=== PATIENT | male | born 1955 | race African-American/Black ===

== ENCOUNTER 2017-07-30 05:56 | Emergency (ER) | payer OTHER ==
[~2017-07-30 05:56] MED LIST: ACET325 PO; ALBU90I INH; ALBU90OI INH; ALUMAG30SU PO; ASPI81CH PO; ATOR40TA PO; CARV3.125 PO; CEPH500 PO; FISH1000; FISH1000 PO; LISHYD1012 PO; LISHYD2025 PO; Milk Of Ma400 MG/5 M PO; NICO21TP TOP; OXYACE5T PO; PRAZ2 PO; RXCLIN PO; RXHYD5325 PO; SULF10OPSA OD; TRAZ50 PO
[2018-02-04] MEDS ORDERED: PRED20 PO (11:59)
== END 2017-07-30 08:13 | disposition left against medical advice (07) ==
LOC: ER 05:56
DX: Z53.21 Procedure and treatment not carried out due to patient leaving prior to being seen by health care provider (principal)

== ENCOUNTER → 2017-12-13 | Outpatient (CLI) | payer OTHER ==
[~2017-12-13] MED LIST changes: +ASPI81CH; -ASPI81CH PO
[2017-12-13 17:07] LABS: BASOPHILS ABSOLUTE AUTO 0.05 K/mm3 (0.00-0.23); BASOPHILS PERCENT AUTO 1 % (0-2); EOSINOPHILS ABSOLUTE AUTO 0.07 K/mm3 (0.00-0.68); EOSINOPHILS PERCENT AUTO 2 % (0-6); Hematocrit 46.9 % (37.0-53.0); Hemoglobin 15.4 g/dL (13.5-17.5); IMMATURE GRAN ABSOLUTE AUTO 0.01 K/mm3 (0.00-0.10); IMMATURE GRAN PERCENT AUTO 0 % (0-1); LYMPHOCYTES ABSOLUTE AUTO 1.53 K/mm3 (0.84-5.20); LYMPHOCYTES PERCENT AUTO 38 % (21-46); MONOCYTES ABSOLUTE AUTO 0.36 K/mm3 (0.16-1.47); MONOCYTES PERCENT AUTO 9 % (4-13); Mean Corpuscular HGB 28.3 pg (26.0-34.0); Mean Corpuscular HGB Conc 32.8 g/dL (31.5-36.5); Mean Corpuscular Volume 86 fL (80-100); Mean Platelet Volume 9.8 fL (9.1-12.4); NEUTROPHILS ABSOLUTE AUTO 2.02 K/mm3 (1.96-9.15); NEUTROPHILS PERCENT AUTO 50 % (41-73); Platelet Count 208 K/mm3 (150-400); RDW Coefficient Variation 13.6 % (11.7-14.2); RDW Standard Deviation 42.9 fL (35.1-46.3); Red Blood Cell Count 5.44 M/mm3 (4.30-5.90); White Blood Cell Count 4.04 K/mm3 (4.00-11.30)
[2017-12-13 17:24] LABS: Alanine Aminotransfer (ALT/SGP 21 U/L (12-78); Albumin, Blood 4.2 g/dL (3.4-5.0); Albumin/Globulin Ratio 1.1 (0.8-1.8); Alk Phos 69 U/L (40-126); Anion Gap 8 mmol/L (6-16); Aspartate Aminotrans (AST/SGOT 17 U/L (12-37); Bilirubin, Total 0.3 mg/dL (0.1-1.0); Blood Urea Nitrogen 18 mg/dL (8-24); Bun/Creatinine Ratio 14.8 (12.0-20.0); CO2, Blood 25 mmol/L (21-32); Calcium, Blood 9.6 mg/dL (8.5-10.1); Chloride, Blood 106 mmol/L (98-108); Creatinine, Blood 1.22 mg/dL (0.60-1.20); Globulin, Blood 3.9 g/dL (2.2-4.0); Glomerular Filtration Rate >60 (60-); Glucose, Blood 90 mg/dL (70-99); Potassium, Blood 3.8 mmol/L (3.5-5.5); Sodium, Blood 139 mmol/L (136-145); Total Protein, Blood 8.1 g/dL (6.4-8.2)
== END | disposition home or self-care (01) ==
LOC: LAB EV 17:01 → LAB SHORT 17:01
PROVIDERS: Physician Assistant Medical
DX: R10.84 Generalized abdominal pain (principal)
CPT/HCPCS: 80053; 85025

== ENCOUNTER 2018-01-23 18:28 | Observation (INO) | payer OTHER ==
[~2018-01-23] VITALS: Ht 193 cm; Wt 87.0 kg
[~2018-01-23 18:28] MED LIST changes: -ASPI81CH; +ASPI81CH PO
[2018-01-23 19:09] LABS: BASOPHILS ABSOLUTE AUTO 0.03 K/mm3 (0.00-0.23); BASOPHILS PERCENT AUTO 0 % (0-2); EOSINOPHILS ABSOLUTE AUTO 0.01 K/mm3 (0.00-0.68); EOSINOPHILS PERCENT AUTO 0 % (0-6); Hematocrit 46.4 % (37.0-53.0); Hemoglobin 14.9 g/dL (13.5-17.5); IMMATURE GRAN ABSOLUTE AUTO 0.03 K/mm3 (0.00-0.10); IMMATURE GRAN PERCENT AUTO 0 % (0-1); LYMPHOCYTES ABSOLUTE AUTO 1.16 K/mm3 (0.84-5.20); LYMPHOCYTES PERCENT AUTO 16 % (21-46); MONOCYTES ABSOLUTE AUTO 0.67 K/mm3 (0.16-1.47); MONOCYTES PERCENT AUTO 10 % (4-13); Mean Corpuscular HGB 27.4 pg (26.0-34.0); Mean Corpuscular HGB Conc 32.1 g/dL (31.5-36.5); Mean Corpuscular Volume 85 fL (80-100); Mean Platelet Volume 9.3 fL (9.1-12.4); NEUTROPHILS ABSOLUTE AUTO 5.16 K/mm3 (1.96-9.15); NEUTROPHILS PERCENT AUTO 73 % (41-73); Platelet Count 277 K/mm3 (150-400); RDW Coefficient Variation 13.5 % (11.7-14.2); Red Blood Cell Count 5.44 M/mm3 (4.30-5.90); White Blood Cell Count 7.06 K/mm3 (4.00-11.30)
[2018-01-23 19:54] LABS: Albumin, Blood 4.7 g/dL (3.4-5.0); Albumin/Globulin Ratio 1.1 (0.8-1.8); Bilirubin, Total 0.5 mg/dL (0.1-1.0); Calcium, Blood 9.6 mg/dL (8.5-10.1); Globulin, Blood 4.1 g/dL (2.2-4.0); Potassium, Blood 4.2 mmol/L (3.5-5.5); Total Protein, Blood 8.8 g/dL (6.4-8.2); Troponin I 0.439 ng/mL (0.000-0.040)
[2018-01-23] MEDS ORDERED: AMLO5 PO (20:29)
[2018-01-23] MEDS ORDERED: CLOP75 PO (20:30)
[2018-01-23] MEDS ORDERED: HYDRA50 PO (20:31)
[2018-01-23] MEDS ORDERED: LISI20 PO (20:31)
[2018-01-23] MEDS ORDERED: Dyazide 37.5-21 EACH PO (20:33)
[2018-01-23] MEDS ORDERED: Nitrostat0.4 MG SL (20:33)
[2018-01-24 03:18] LABS: Hemoglobin 13.5 g/dL (13.5-17.5); Mean Corpuscular HGB 28.2 pg (26.0-34.0); Mean Corpuscular HGB Conc 32.9 g/dL (31.5-36.5); Mean Corpuscular Volume 86 fL (80-100); Mean Platelet Volume 9.1 fL (9.1-12.4); Platelet Count 226 K/mm3 (150-400); RDW Coefficient Variation 13.4 % (11.7-14.2); RDW Standard Deviation 41.9 fL (35.1-46.3); Red Blood Cell Count 4.79 M/mm3 (4.30-5.90); White Blood Cell Count 4.93 K/mm3 (4.00-11.30)
[2018-01-24 03:19] LABS: Source, Urine Clean Catch
[2018-01-24 03:27] LABS: Bilirubin, Urine Neg (Neg); Blood, Urine Neg (Neg); Glucose Qualitative, Urine Neg (Neg); Ketones, Urine Neg (Neg); Leukocyte Esterase, Urine Neg (Neg); Nitrite, Urine Neg (Neg); Protein, Urine Neg (Neg); Urobilinogen, Urine NORM (Normal)
[2018-01-24 03:33] LABS: Appearance, Urine Clear (Clear); Color, Urine Yellow (P-Yellow)
[2018-01-24 03:37] LABS: U Amphetamine Screen DETECTED; U Barbituate Screen Not Detected; U Benzodiazapine Screen Not Detected; U Cocaine Screen Not Detected; U Methamphetamine Screen DETECTED
[2018-01-24 03:38] LABS: U Buprenorphine Screen Not Detected; U Cannabinoids Screen Not Detected; U Methadone Screen Not Detected; U Opiates Screen Not Detected; U Oxycodone Screen Not Detected; U Phencyclidine Screen Not Detected; U Propoxyphene Screen Not Detected
[2018-01-24 03:49] LABS: Albumin, Blood 3.8 g/dL (3.4-5.0); Albumin/Globulin Ratio 1.1 (0.8-1.8); Bilirubin, Total 0.4 mg/dL (0.1-1.0); Bun/Creatinine Ratio 21.6 (12.0-20.0); Calcium, Blood 8.7 mg/dL (8.5-10.1); Creatinine, Blood 1.39 mg/dL (0.60-1.20); Globulin, Blood 3.6 g/dL (2.2-4.0); Potassium, Blood 3.8 mmol/L (3.5-5.5); Total Protein, Blood 7.4 g/dL (6.4-8.2)
[2018-01-24 03:50] LABS: Troponin I 0.533 ng/mL (0.000-0.040)
[2018-01-24 04:04] LABS: Creatine Kinase MB 6.2 ng/mL (0.0-3.6); Creatine Kinase MB Index 1.2 (0.0-4.0)
[2018-01-24 12:55] LABS: Troponin I 0.633 ng/mL (0.000-0.040)
[2018-01-24 14:42] LABS: Creatine Kinase MB 5.2 ng/mL (0.0-3.6); Creatine Kinase MB Index 1.1 (0.0-4.0)
== END 2018-01-24 20:05 | disposition left against medical advice (07) ==
LOC: ER 18:28 → MEDS 18:29
PROVIDERS: Emergency Medicine; Internal Medicine
DX: N17.9 Acute kidney failure, unspecified (principal); R07.89 Other chest pain; R79.89 Other specified abnormal findings of blood chemistry; I25.10 Atherosclerotic heart disease of native coronary artery without angina pectoris; R11.2 Nausea with vomiting, unspecified; I12.9 Hypertensive chronic kidney disease with stage 1 through stage 4 chronic kidney disease, or unspecified chronic kidney disease; N18.9 Chronic kidney disease, unspecified; I25.2 Old myocardial infarction; N40.0 Benign prostatic hyperplasia without lower urinary tract symptoms; F17.210 Nicotine dependence, cigarettes, uncomplicated; Z95.5 Presence of coronary angioplasty implant and graft; Z86.73 Personal history of transient ischemic attack (TIA), and cerebral infarction without residual deficits; Z85.46 Personal history of malignant neoplasm of prostate; Z79.82 Long term (current) use of aspirin; Z79.01 Long term (current) use of anticoagulants; Z79.899 Other long term (current) drug therapy
CPT/HCPCS: 36415; 71046; 76705; 76770; 80053; 81003; 82550; 82553; 84484; 85025; 85027; 93005; 93010; 96361; 96372; 96374; 96375; 96376; 99285-25; C9113; G0378; J1650; J2405; J7030

== ENCOUNTER 2018-06-27 19:30 | Emergency (ER) | payer OTHER ==
[~2018-06-27] VITALS: Ht 193 cm; Wt 83.9 kg
[~2018-06-27 19:30] MED LIST changes: +AMLO5 PO; +CLOP75 PO; +Dyazide 37.5-21 EACH PO; +HYDRA50 PO; +LISI20 PO; +Nitrostat0.4 MG SL; +PRED20 PO
[2018-06-27] MEDS ORDERED: VOLTAREN100 GM TOP (23:41)
[2018-06-28] MEDS ORDERED: HYDR1TAB94 PO (15:48)
== END 2018-06-27 23:50 | disposition home or self-care (01) ==
LOC: ER 19:30
DX: T14.8XXA Other injury of unspecified body region, initial encounter (principal); I10 Essential (primary) hypertension; F17.210 Nicotine dependence, cigarettes, uncomplicated; Z79.899 Other long term (current) drug therapy; Z79.82 Long term (current) use of aspirin; Z79.52 Long term (current) use of systemic steroids; V49.9XXA Car occupant (driver) (passenger) injured in unspecified traffic accident, initial encounter
CPT/HCPCS: 71046; 72040; 96372; 99284-25; J1885

== ENCOUNTER 2018-09-21 10:51 | Day surgery (SDC) | payer OTHER ==
[~2018-09-21] VITALS: Ht 193 cm; Wt 94.2 kg
[~2018-09-21 10:51] MED LIST changes: +HYDR1TAB94 PO; +VOLTAREN100 GM TOP
--- NOTE | 2018-09-21 11:09 | NUR ---
Ambulatory in Day SurgeryPatient states colon prep results clear. History, Chart, Medications and Allergies reviewed before start of procedure.Lungs clear T/O to Auscultation. Patient confirms NPO status and agrees with scheduled surgery. Pre-Op teaching done. Pt verbalizes understanding.
--- NOTE | 2018-09-21 12:20 | NUR ---
09/21/18 1220 Jaydon Infante Bite Block Placed3-LEAD EKG REVIEWED WITH PHYSICIAN PRIOR TO START OF PROCEDURE.Patient to ENDO 1History, Chart, Medications and Allergies reviewed before start of procedure.MONITOR INTACT WITH CONTINUOUS PULSE OXIMETRY AND INTERMITTENT BP.O2 VIA N/C INTACT THROUGHOUT SEDATION/PROCEDURE.See Anesthesia record
--- NOTE | 2018-09-21 13:31 | NUR ---
PT TO STEP. C/O PAIN TO NECK 10/07. STATES HE HAS CHRONIC NECK PAIN. PT DROWSY, RESPONDS WHEN SPOKEN TO. ADVISED TO PASS AIR IF HAVING ABD CRAMPS.
--- NOTE | 2018-09-21 13:51 | NUR ---
WRITTEN AND VERBAL D/C INSTUCIONS GIVEN TO PT AND WITH STATED UNDERSTANDING.
== END 2018-09-21 22:42 | disposition home or self-care (01) ==
LOC: ORSCMMR 10:51
PROVIDERS: Internal Medicine Gastroenterology
PROC: 0DBN8ZX Excision of Sigmoid Colon, Via Natural or Artificial Opening Endoscopic, Diagnostic (ICD-10-PCS; principal; 2018-09-21 12:00)
PROC: 0DBL8ZX Excision of Transverse Colon, Via Natural or Artificial Opening Endoscopic, Diagnostic (ICD-10-PCS; principal; 2018-09-21 12:00)
PROC: 0DJ08ZZ Inspection of Upper Intestinal Tract, Via Natural or Artificial Opening Endoscopic (ICD-10-PCS; principal; 2018-09-21 12:00)
DX: D50.9 Iron deficiency anemia, unspecified (principal); D12.3 Benign neoplasm of transverse colon; D12.5 Benign neoplasm of sigmoid colon; K92.1 Melena; K57.30 Diverticulosis of large intestine without perforation or abscess without bleeding; K64.8 Other hemorrhoids; K25.9 Gastric ulcer, unspecified as acute or chronic, without hemorrhage or perforation; I10 Essential (primary) hypertension; I25.2 Old myocardial infarction; F41.8 Other specified anxiety disorders; F17.210 Nicotine dependence, cigarettes, uncomplicated; Z79.899 Other long term (current) drug therapy; Z79.82 Long term (current) use of aspirin; Z79.01 Long term (current) use of anticoagulants
CPT/HCPCS: 88305; J2405; J2704; J3010; J7120

== ENCOUNTER 2019-12-05 03:18 | Inpatient (IN) | payer OTHER ==
[~2019-12-05] VITALS: Ht 193 cm; Wt 84.8 kg
[~2019-12-05 03:18] MED LIST changes: +ASPI325 PO
[2019-12-05 03:58] LABS: Hematocrit 41.6 % (37.0-53.0); Hemoglobin 12.9 g/dL (13.5-17.5); Mean Corpuscular HGB 28.2 pg (26.0-34.0); Mean Corpuscular Volume 91 fL (80-100); Mean Platelet Volume 9.9 fL (9.1-12.4); Platelet Count 203 K/mm3 (150-400); RDW Coefficient Variation 14.6 % (11.7-14.2); RDW Standard Deviation 48.8 fL (35.1-46.3); Red Blood Cell Count 4.58 M/mm3 (4.30-5.90); White Blood Cell Count 3.96 K/mm3 (4.00-11.30)
[2019-12-05 04:00] LABS: Calcium, Ionized (POC) 1.17 mmol/L (1.10-1.46); Chloride (POC) 106 mmol/L (98-108); Creatinine (POC) 1.1 mg/dL (0.8-1.3); Glucose (ISTAT POC) 138 mg/dL (70-99); Hemoglobin (POC) 13.9 g/dL (13.5-17.5); Sodium (POC) 140 mmol/L (135-148); Total CO2 (POC) 22 mmol/L (21-32)
[2019-12-05 04:13] LABS: Prothrombin Time Results 10.7 Sec (9.7-11.5)
[2019-12-05 04:18] LABS: Alanine Aminotransfer (ALT/SGP 26 U/L (12-78); Albumin, Blood 3.9 g/dL (3.4-5.0); Albumin/Globulin Ratio 1.2 (0.8-1.8); Alk Phos 64 U/L (50-136); Anion Gap 4 mmol/L (6-16); Aspartate Aminotrans (AST/SGOT 24 U/L (12-37); Bilirubin, Total 0.2 mg/dL (0.1-1.0); Blood Urea Nitrogen 25 mg/dL (8-24); Bun/Creatinine Ratio 20.8 (12.0-20.0); CHOL/HDL RATIO 1.4; CO2, Blood 27 mmol/L (21-32); Calcium, Blood 8.5 mg/dL (8.5-10.1); Chloride, Blood 110 mmol/L (98-108); Cholesterol 91 mg/dL (50-200); Globulin, Blood 3.2 g/dL (2.2-4.0); Glomerular Filtration Rate >60 (60-); Glucose, Blood 121 mg/dL (70-99); HDL Cholesterol 63 mg/dL (>39); LDL/HDL RATIO 0.3; Low Density Lipoprotein Chol 16 mg/dL (0-110); Magnesium, Blood 2.2 mg/dL (1.6-2.4); Potassium, Blood 3.9 mmol/L (3.5-5.5); Sodium, Blood 141 mmol/L (136-145); Total Protein, Blood 7.1 g/dL (6.4-8.2); Triglycerides 58 mg/dL (30-160); Troponin I <0.015 ng/mL (0.000-0.040); Very Low Density Lipoprot Chol 11 mg/dL (6-32)
[2019-12-05] MEDS ORDERED: METO25ER PO (05:53)
--- NOTE | 2019-12-05 06:43 | NUR ---
ADMIT/ASSESSMENT PT ARRIVED FROM GRAVITY METER OPERATOR AT 0540 VIA BED. PT AWAKE, A&O. DENIES PAIN OR DISCOMFORT. FOLLOWS INSTRUCTIONS. LUNGS CLEAR ON ROOMAIR. RESP EVEN AND NONLABORED. DENIES SOB OR COUGH. HEART RATE REGULAR, SINUS ISAAC. DENIES CHEST PAIN OR PRESSURE. NO EDEMA. BT+ ABD SOFT AND NONTENDER. DENIES N/V. STATES,"I HAVE A LITTLE INDIGESTION, BUT BETTER THAN BEFORE". IV 18G TO RIGHT AND LEFT FOREARM BOTH SALINE LOCKED, SITES CLEAR. VOIDING CLEAR YELLOW URINE VIA URINAL. TR BAND TO RIGHT WRIST SITE STABLE. NO BLEEDING OR HEMATOMA NOTED. REPORT TO ON COMING NURSE
[2019-12-05 07:33] LABS: U Amphetamine Screen Not Detected; U Barbituate Screen Not Detected; U Benzodiazapine Screen Not Detected; U Buprenorphine Screen Not Detected; U Cannabinoids Screen Not Detected; U Cocaine Screen Not Detected; U Methadone Screen Not Detected; U Methamphetamine Screen Not Detected; U Opiates Screen Not Detected; U Oxycodone Screen Not Detected; U Phencyclidine Screen Not Detected; U Propoxyphene Screen Not Detected
--- NOTE | 2019-12-05 10:59 | NUR ---
echocardiogram complete
--- NOTE | 2019-12-05 11:35 | NUR ---
REASSESSMENT PT HAS BEEN RESTING IN BED THROUGHOUT THE MORNING. HE DENIES CHEST PAIN. TR BAND ON R WRIST. STARTED RELEASING AIR THIS MORNING, BUT AFTER ABOUT 6CC PT APPEARED TO HAVE A SMALL HEMATOMA ABOVE THE TR BAND. PT COMPLAINED OF SOME TENDERNESS AND SITE WAS A LITTLE FIRM. AIR REPLACED AND PRESSURE HELD. WRIST SOFTENED UP. RESTARTED RELEASING AIR ABOUT 45 MINUTES LATER AND AIR IS CURRENTLY OUT OF THE BAND, WAITING AN HOUR BEFORE TAKING BAND ALL THE WAY OFF AND PLACING DRESSING. PT IS IN SB IN THE 40S WHILE RESTING, 50S WHILE UP AND MOVING. SBP IN THE 90S-LOW 100S SO BP MEDS HELD THIS MORNING. LUNGS ARE CLEAR, RA. EATING WELL, VOIDING WITHOUT DIFFICULTY. PT'S IS AT THE BEDSIDE AND HAS BEEN UPDATED. CONTINUING TO MONITOR.
[2019-12-05 12:11] LABS: BASOPHILS ABSOLUTE AUTO 0.03 K/mm3 (0.00-0.23); BASOPHILS PERCENT AUTO 1 % (0-2); EOSINOPHILS ABSOLUTE AUTO 0.08 K/mm3 (0.00-0.68); EOSINOPHILS PERCENT AUTO 2 % (0-6); Hematocrit 38.9 % (37.0-53.0); IMMATURE GRAN ABSOLUTE AUTO 0.01 K/mm3 (0.00-0.10); IMMATURE GRAN PERCENT AUTO 0 % (0-1); LYMPHOCYTES PERCENT AUTO 24 % (21-46); MONOCYTES PERCENT AUTO 12 % (4-13); Mean Corpuscular HGB 27.7 pg (26.0-34.0); Mean Corpuscular HGB Conc 30.8 g/dL (31.5-36.5); Mean Corpuscular Volume 90 fL (80-100); Mean Platelet Volume 9.7 fL (9.1-12.4); NEUTROPHILS ABSOLUTE AUTO 2.55 K/mm3 (1.96-9.15); NEUTROPHILS PERCENT AUTO 61 % (41-73); Platelet Count 201 K/mm3 (150-400); RDW Coefficient Variation 14.4 % (11.7-14.2); RDW Standard Deviation 47.4 fL (35.1-46.3); Red Blood Cell Count 4.33 M/mm3 (4.30-5.90); White Blood Cell Count 4.17 K/mm3 (4.00-11.30)
[2019-12-05 12:29] LABS: Anion Gap 5 mmol/L (6-16); Blood Urea Nitrogen 23 mg/dL (8-24); Bun/Creatinine Ratio 21.7 (12.0-20.0); CO2, Blood 27 mmol/L (21-32); Calcium, Blood 8.4 mg/dL (8.5-10.1); Chloride, Blood 109 mmol/L (98-108); Creatinine, Blood 1.06 mg/dL (0.60-1.20); Glomerular Filtration Rate >60 (60-); Glucose, Blood 85 mg/dL (70-99); Potassium, Blood 3.6 mmol/L (3.5-5.5); Sodium, Blood 141 mmol/L (136-145)
--- NOTE | 2019-12-05 15:06 | NUR ---
PT'S TR BAND CAME OFF AT 1130 AND SITE HAS REMAINED C/D/I, SOFT WITHOUT SIGNS OF HEMATOMA. PT HAS BEEN RESTING QUIETLY IN BED. NO COMPLAINTS OF CHEST PAIN. SPOKE WITH DR. ELLIS AND RECEIVED OK TO TRANSFER PT TO PCU.
--- NOTE | 2019-12-05 16:06 | NUR ---
SHIFT SUMMARY PT SPENT THE DAY RESTING IN BED. HE WAS HAVING SOME NECK/SHOULDER PAIN AFTER THE BRAND MARKETING MANAGER SO TYLENOL GIVEN AND HEATING PAD APPLIED. PT STATES HE'S HAD DECENT RELIEF WITH THOSE MEASURES. CONTINUES TO DENY CHEST PAIN. R RADIAL SITE C/D/I, SOFT, NO HEMATOMA. LUNGS ARE CLEAR, RA. EATING WELL. VOIDING WITHOUT DIFFICULTY. PT'S WAS IN THIS MORNING AND WAS UPDATED. CONTINUING TO MONITOR.
--- NOTE | 2019-12-05 17:56 | NUR ---
Per admit trigger, I met with pt and spouse to offer information about advanced care planning. Alberto was very tired and fell back to sleep after greetings. I gently explained the benefits and purpose of Advanced Directives, and spouse agrees this would be a helpful conversation for the two of them to have "sometime down the road." Prayer for healing provided and continued support offered. Reinstatement Clerk services will remain available.
--- NOTE | 2019-12-05 18:27 | NUR ---
TRANSFER PT TRANSFERRED TO PCU 8 VIA WC WITH NURSE. REPORT GIVEN TO WILLA PATEL. ALL BELONGINGS SENT WITH PT. PT TOLERATED TRANSFER WELL.
[2019-12-05] MEDS ORDERED: METO25 PO (22:21)
--- NOTE | 2019-12-06 06:26 | NUR ---
SHIFT SUMMARY PT A&O; SPOUSE LEFT BEDSIDE APPROXIMATELY 2034; PT SLEPT SEVERAL HOURS IN BETWEEN INTERVENTIONS; SINUS ISAAC NOTED ON TELE; HR 50'S WHICH PT STATES BASELINE; R RADIAL SITE C/D/I, TEGADERM IN PLACE; ARM BOARD IN PLACE; CURRENTLY SLEEPING; CALL LIGHT IN REACH; BED IN LOWEST POSITION; WILL CONTINUE TO MONITOR CLOSELY UNTIL HAND OFF TO DAY SHIFT RN.
[2019-12-06] MEDS ORDERED: PANT40 PO (10:49)
[2019-12-06] MEDS ORDERED: CLOP75 PO (10:49)
--- NOTE | 2019-12-06 11:51 | NUR ---
UPDATE PT ALERT AND ORIENTED. VS STABLE. HR NSR. DR. ELLIS IN WITH PLANS FOR DISCHARGE. PT PROVIDED DISCHARGE INSTRUCTIONS. PT PROVIDED EDUCATION ON INSTRUCTIONS AND NEW MEDICATIONS. ALL QUESTIONS ANSWERED. IV REMOVED. PT TAKEN OUT BY TAMAR.
== END 2019-12-06 11:21 | disposition home or self-care (01) | DRG 251 ==
LOC: ER 03:18 → ICUW 04:06 → PCU 18:10
PROVIDERS: Emergency Medicine; ADMIT Internal Medicine Interventional Cardiology
PROC: 02703ZZ Dilation of Coronary Artery, One Artery, Percutaneous Approach (ICD-10-PCS; principal; 2019-12-05)
PROC: 4A023N7 Measurement of Cardiac Sampling and Pressure, Left Heart, Percutaneous Approach (ICD-10-PCS; 2019-12-05)
PROC: B2111ZZ Fluoroscopy of Multiple Coronary Arteries using Low Osmolar Contrast (ICD-10-PCS; 2019-12-05)
DX: I21.3 ST elevation (STEMI) myocardial infarction of unspecified site (principal); I10 Essential (primary) hypertension; E78.5 Hyperlipidemia, unspecified; I25.10 Atherosclerotic heart disease of native coronary artery without angina pectoris; F17.210 Nicotine dependence, cigarettes, uncomplicated; Z95.5 Presence of coronary angioplasty implant and graft
CPT/HCPCS: 36415; 80047; 80048; 80053; 80061; 83735; 84484; 85014; 85025; 85027; 85347; 85610; 85730; 86850; 86900; 86901; 92941; 93005; 93010; 93306; 93458; 96372; 99152; 99153; 99285-25; A9270; A9270-GY; C1725; C1769; C1887; C1894; J0461; J1644; J1940; J2250; J3010; J7030; Q9967

== ENCOUNTER 2020-06-05 13:11 | Emergency (ER) | payer OTHER ==
[~2020-06-05] VITALS: Ht 193 cm; Wt 86.2 kg
[~2020-06-05 13:11] MED LIST changes: +METO25 PO; +METO25ER PO; +PANT40 PO
[2020-06-05 13:46] LABS: BASOPHILS ABSOLUTE AUTO 0.03 K/mm3 (0.00-0.23); BASOPHILS PERCENT AUTO 1 % (0-2); EOSINOPHILS ABSOLUTE AUTO 0.03 K/mm3 (0.00-0.68); EOSINOPHILS PERCENT AUTO 1 % (0-6); Hematocrit 41.6 % (37.0-53.0); Hemoglobin 12.5 g/dL (13.5-17.5); IMMATURE GRAN PERCENT AUTO 0 % (0-1); LYMPHOCYTES ABSOLUTE AUTO 1.08 K/mm3 (0.84-5.20); LYMPHOCYTES PERCENT AUTO 34 % (21-46); MONOCYTES ABSOLUTE AUTO 0.48 K/mm3 (0.16-1.47); MONOCYTES PERCENT AUTO 15 % (4-13); Mean Corpuscular HGB 25.4 pg (26.0-34.0); Mean Corpuscular Volume 85 fL (80-100); Mean Platelet Volume 9.6 fL (9.1-12.4); NEUTROPHILS ABSOLUTE AUTO 1.55 K/mm3 (1.96-9.15); NEUTROPHILS PERCENT AUTO 49 % (41-73); Platelet Count 260 K/mm3 (150-400); RDW Coefficient Variation 14.6 % (11.7-14.2); RDW Standard Deviation 45.5 fL (35.1-46.3); Red Blood Cell Count 4.92 M/mm3 (4.30-5.90); White Blood Cell Count 3.17 K/mm3 (4.00-11.30)
[2020-06-05 14:09] LABS: Troponin I <0.015 ng/mL (0.000-0.040)
[2020-06-05 14:14] LABS: Alanine Aminotransfer (ALT/SGP 27 U/L (12-78); Albumin, Blood 4.4 g/dL (3.4-5.0); Albumin/Globulin Ratio 1.2 (0.8-1.8); Alk Phos 61 U/L (50-136); Anion Gap 9 mmol/L (6-16); Aspartate Aminotrans (AST/SGOT 18 U/L (12-37); Bilirubin, Total 0.4 mg/dL (0.1-1.0); Blood Urea Nitrogen 16 mg/dL (8-24); Bun/Creatinine Ratio 13.9 (12.0-20.0); CO2, Blood 25 mmol/L (21-32); Calcium, Blood 9.7 mg/dL (8.5-10.1); Chloride, Blood 108 mmol/L (98-108); Creatinine, Blood 1.15 mg/dL (0.60-1.20); Globulin, Blood 3.7 g/dL (2.2-4.0); Glomerular Filtration Rate >60 (60-); Glucose, Blood 88 mg/dL (70-99); Potassium, Blood 3.8 mmol/L (3.5-5.5); Sodium, Blood 142 mmol/L (136-145); Total Protein, Blood 8.1 g/dL (6.4-8.2)
[2020-06-05] MEDS ORDERED: PANT20 PO (15:48)
== END 2020-06-05 16:00 | disposition home or self-care (01) ==
LOC: ER 13:11
PROVIDERS: Physician Assistant
DX: R07.9 Chest pain, unspecified (principal); I25.2 Old myocardial infarction; I25.10 Atherosclerotic heart disease of native coronary artery without angina pectoris; I10 Essential (primary) hypertension; F17.290 Nicotine dependence, other tobacco product, uncomplicated; Z79.82 Long term (current) use of aspirin; Z79.899 Other long term (current) drug therapy; Z79.02 Long term (current) use of antithrombotics/antiplatelets; Z88.5 Allergy status to narcotic agent; Z95.5 Presence of coronary angioplasty implant and graft
CPT/HCPCS: 36415; 71046; 80053; 84484; 85025; 93005; 93010; 96374; 99285-25; A9270

== ENCOUNTER → 2021-11-07 | Outpatient (CLI) | payer MEDICARE, OTHER ==
[~2021-11-07] MED LIST changes: +PANT20 PO
[2021-11-07 16:06] LABS: BASOPHILS ABSOLUTE AUTO 0.03 K/mm3 (0.00-0.23); BASOPHILS PERCENT AUTO 1 % (0-2); EOSINOPHILS ABSOLUTE AUTO 0.13 K/mm3 (0.00-0.68); EOSINOPHILS PERCENT AUTO 3 % (0-6); Hematocrit 38.6 % (37.0-53.0); Hemoglobin 12.6 g/dL (13.5-17.5); IMMATURE GRAN ABSOLUTE AUTO 0.01 K/mm3 (0.00-0.10); IMMATURE GRAN PERCENT AUTO 0 % (0-1); LYMPHOCYTES ABSOLUTE AUTO 0.97 K/mm3 (0.84-5.20); LYMPHOCYTES PERCENT AUTO 22 % (21-46); MONOCYTES ABSOLUTE AUTO 0.54 K/mm3 (0.16-1.47); MONOCYTES PERCENT AUTO 12 % (4-13); Mean Corpuscular HGB 27.2 pg (26.0-34.0); Mean Corpuscular HGB Conc 32.6 g/dL (31.5-36.5); Mean Corpuscular Volume 83 fL (80-100); Mean Platelet Volume 9.6 fL (9.1-12.4); NEUTROPHILS ABSOLUTE AUTO 2.73 K/mm3 (1.96-9.15); Platelet Count 265 K/mm3 (150-400); RDW Coefficient Variation 14.2 % (11.7-14.2); RDW Standard Deviation 42.9 fL (35.1-46.3); Red Blood Cell Count 4.63 M/mm3 (4.30-5.90); White Blood Cell Count 4.41 K/mm3 (4.00-11.30)
[2021-11-07 16:09] LABS: NEUTROPHILS PERCENT AUTO 62 % (41-73)
[2021-11-07 16:14] LABS: Albumin, Blood 4.3 g/dL (3.4-5.0); Albumin/Globulin Ratio 1.2 (0.8-1.8); Bilirubin, Total 0.4 mg/dL (0.1-1.0); Bun/Creatinine Ratio 11.6 (12.0-20.0); Calcium, Blood 9.7 mg/dL (8.5-10.1); Creatinine, Blood 1.29 mg/dL (0.60-1.20); Globulin, Blood 3.6 g/dL (2.2-4.0); Potassium, Blood 3.6 mmol/L (3.5-5.5); Total Protein, Blood 7.9 g/dL (6.4-8.2)
== END | disposition home or self-care (01) ==
LOC: LAB SHORT 16:01 → LAB 16:01
PROVIDERS: Physician Assistant Surgical
DX: M79.89 Other specified soft tissue disorders (principal)
CPT/HCPCS: 80053; 83880; 85025

== ENCOUNTER 2021-11-18 14:36 | Observation (INO) | payer OTHER ==
[~2021-11-18] VITALS: Ht 185.4 cm; Wt 84.4 kg
[2021-11-18 16:22] LABS: BASOPHILS ABSOLUTE AUTO 0.03 K/mm3 (0.00-0.23); BASOPHILS PERCENT AUTO 1 % (0-2); EOSINOPHILS ABSOLUTE AUTO 0.09 K/mm3 (0.00-0.68); EOSINOPHILS PERCENT AUTO 2 % (0-6); Hematocrit 38.4 % (37.0-53.0); Hemoglobin 12.2 g/dL (13.5-17.5); IMMATURE GRAN ABSOLUTE AUTO 0.01 K/mm3 (0.00-0.10); IMMATURE GRAN PERCENT AUTO 0 % (0-1); LYMPHOCYTES ABSOLUTE AUTO 0.91 K/mm3 (0.84-5.20); LYMPHOCYTES PERCENT AUTO 21 % (21-46); MONOCYTES ABSOLUTE AUTO 0.49 K/mm3 (0.16-1.47); MONOCYTES PERCENT AUTO 12 % (4-13); Mean Corpuscular HGB 26.4 pg (26.0-34.0); Mean Corpuscular HGB Conc 31.8 g/dL (31.5-36.5); Mean Corpuscular Volume 83 fL (80-100); Mean Platelet Volume 8.9 fL (9.1-12.4); NEUTROPHILS ABSOLUTE AUTO 2.74 K/mm3 (1.96-9.15); NEUTROPHILS PERCENT AUTO 64 % (41-73); Platelet Count 255 K/mm3 (150-400); RDW Coefficient Variation 14.4 % (11.7-14.2); RDW Standard Deviation 43.5 fL (35.1-46.3); Red Blood Cell Count 4.62 M/mm3 (4.30-5.90); White Blood Cell Count 4.27 K/mm3 (4.00-11.30)
[2021-11-18 16:29] LABS: Albumin, Blood 3.7 g/dL (3.4-5.0); Bilirubin, Total 0.5 mg/dL (0.1-1.0); Bun/Creatinine Ratio 10.7 (12.0-20.0); Calcium, Blood 9.4 mg/dL (8.5-10.1); Creatinine, Blood 1.22 mg/dL (0.60-1.20); Globulin, Blood 3.7 g/dL (2.2-4.0); Potassium, Blood 3.5 mmol/L (3.5-5.5); Total Protein, Blood 7.4 g/dL (6.4-8.2)
[2021-11-18 19:29] LABS: CHOL/HDL RATIO 1.5; Cholesterol 106 mg/dL (50-200); HDL Cholesterol 73 mg/dL (>39); LDL/HDL RATIO 0.3; Low Density Lipoprotein Chol 25 mg/dL (0-110); Triglycerides 41 mg/dL (30-160); Very Low Density Lipoprot Chol 8 mg/dL (6-32)
--- NOTE | 2021-11-19 04:02 | NUR ---
SHIFT SUMMARY NO ACUTE CHANGES SINCE ARRIVAL TO UNIT. PT CONT TO DENY CHEST PAIN/PRESSURE. HE DOES REPORT A MILD CHEST "TIGHTNESS" THAT HAS BEEN PRESENT SINCE THE ER AND DOES NOT REPORT IT TO BE WORSENING. HYDRALAZINE GIVEN X1 FOR HTN. TELE IN PLACE. INDEP IN ROOM. IV SL. CALL LIGHT WITHIN REACH.
[2021-11-19 04:42] LABS: BASOPHILS ABSOLUTE AUTO 0.04 K/mm3 (0.00-0.23); BASOPHILS PERCENT AUTO 1 % (0-2); EOSINOPHILS ABSOLUTE AUTO 0.16 K/mm3 (0.00-0.68); EOSINOPHILS PERCENT AUTO 4 % (0-6); Hematocrit 40.4 % (37.0-53.0); Hemoglobin 12.7 g/dL (13.5-17.5); IMMATURE GRAN ABSOLUTE AUTO 0.01 K/mm3 (0.00-0.10); IMMATURE GRAN PERCENT AUTO 0 % (0-1); LYMPHOCYTES ABSOLUTE AUTO 1.25 K/mm3 (0.84-5.20); LYMPHOCYTES PERCENT AUTO 29 % (21-46); MONOCYTES ABSOLUTE AUTO 0.53 K/mm3 (0.16-1.47); MONOCYTES PERCENT AUTO 12 % (4-13); Mean Corpuscular HGB 26.5 pg (26.0-34.0); Mean Corpuscular HGB Conc 31.4 g/dL (31.5-36.5); Mean Corpuscular Volume 84 fL (80-100); Mean Platelet Volume 9.7 fL (9.1-12.4); NEUTROPHILS ABSOLUTE AUTO 2.34 K/mm3 (1.96-9.15); NEUTROPHILS PERCENT AUTO 54 % (41-73); Platelet Count 261 K/mm3 (150-400); RDW Coefficient Variation 14.3 % (11.7-14.2); RDW Standard Deviation 43.8 fL (35.1-46.3); White Blood Cell Count 4.33 K/mm3 (4.00-11.30)
[2021-11-19 05:05] LABS: Albumin, Blood 3.3 g/dL (3.4-5.0); Bilirubin, Total 0.4 mg/dL (0.1-1.0); Bun/Creatinine Ratio 12.3 (12.0-20.0); Calcium, Blood 8.9 mg/dL (8.5-10.1); Creatinine, Blood 1.14 mg/dL (0.60-1.20); Globulin, Blood 3.3 g/dL (2.2-4.0); Potassium, Blood 3.4 mmol/L (3.5-5.5); Total Protein, Blood 6.6 g/dL (6.4-8.2)
--- NOTE | 2021-11-19 12:52 | NUR ---
Echocardiogram completed.
--- NOTE | 2021-11-19 16:59 | NUR ---
SPOKE WITH PT ON THE PHONE, SHE IS WANTING UPDATE. NOTIFIED THAT STRESS TEST IS COMPLETE AND THAT PT WOULD LIKE AN UPDATE.
--- NOTE | 2021-11-19 18:29 | NUR ---
SUMMARY: PT ADMITTED FOR CP. NO ACUTE CHANGE TODAY, VSS, INDEP IN ROOM. PT DROWSY AND ORIENTED. AWAKENS EASILY, BUT PT REPORTS FEELING VERY SLEEPY TODAY WHEN NORMALLY HE IS QUITE ACTIVE. MEDICATED X1 WITH TYLENOL AND TORADOL FOR CHRONIC NECK/BACK PAIN. PT HAD STRESS TEST, HAS DENIED ANY CP TODAY, JUST AN "ACHY" FEELING IN CHEST. PT HR DROPS TO 46-50 AT TIMES WHILE PT ASLEEP, HAS NOT SUSTAINED IN THE 40'S. TELE WNL OTHERWISE. NO SAFETY CONCERNS AT THIS TIME. WILL MONITOR AND REPORT TO NOC RN
[2021-11-19] MEDS ORDERED: METO25 PO (22:35)
--- NOTE | 2021-11-20 04:57 | NUR ---
SUPERVISOR PUBLIC HEALTH NURSING SUMMARY PT DENIES CP THROUGH THE NIGHT. DOES REPORT SOME DIZZINESS WHEN STANDING UP. OBTAINED ORTHOSTATIC VITALS, SBP WHILE SITTING 170 AND 155 WHILE STANDING. PT BP IMPROVED WITH AM VITALS, SBP 120'S. SR ON TELE WITH OCCASIONAL BRADYCARDIA INTO THE LOW 50'S BUT DOES NOT SUSTAIN PER FURNACE COMBUSTION ANALYST. WILL CONTINUE TO MONITOR.
[2021-11-20 05:18] LABS: BASOPHILS ABSOLUTE AUTO 0.03 K/mm3 (0.00-0.23); BASOPHILS PERCENT AUTO 1 % (0-2); EOSINOPHILS ABSOLUTE AUTO 0.11 K/mm3 (0.00-0.68); EOSINOPHILS PERCENT AUTO 3 % (0-6); Hematocrit 37.8 % (37.0-53.0); Hemoglobin 11.8 g/dL (13.5-17.5); IMMATURE GRAN ABSOLUTE AUTO 0.01 K/mm3 (0.00-0.10); IMMATURE GRAN PERCENT AUTO 0 % (0-1); LYMPHOCYTES ABSOLUTE AUTO 1.15 K/mm3 (0.84-5.20); LYMPHOCYTES PERCENT AUTO 35 % (21-46); MONOCYTES ABSOLUTE AUTO 0.39 K/mm3 (0.16-1.47); MONOCYTES PERCENT AUTO 12 % (4-13); Mean Corpuscular HGB 26.3 pg (26.0-34.0); Mean Corpuscular HGB Conc 31.2 g/dL (31.5-36.5); Mean Corpuscular Volume 84 fL (80-100); Mean Platelet Volume 9.5 fL (9.1-12.4); NEUTROPHILS ABSOLUTE AUTO 1.63 K/mm3 (1.96-9.15); NEUTROPHILS PERCENT AUTO 49 % (41-73); Platelet Count 269 K/mm3 (150-400); RDW Coefficient Variation 14.4 % (11.7-14.2); RDW Standard Deviation 44.4 fL (35.1-46.3); Red Blood Cell Count 4.48 M/mm3 (4.30-5.90); White Blood Cell Count 3.32 K/mm3 (4.00-11.30)
[2021-11-20 06:21] LABS: Albumin, Blood 3.1 g/dL (3.4-5.0); Bilirubin, Total 0.2 mg/dL (0.1-1.0); Bun/Creatinine Ratio 15.2 (12.0-20.0); Calcium, Blood 8.8 mg/dL (8.5-10.1); Creatinine, Blood 1.38 mg/dL (0.60-1.20); Globulin, Blood 3.1 g/dL (2.2-4.0); Magnesium, Blood 1.9 mg/dL (1.6-2.4); Potassium, Blood 3.7 mmol/L (3.5-5.5); Thyroid Stimulating Hormone 0.794 uIU/mL (0.360-4.800); Total Protein, Blood 6.2 g/dL (6.4-8.2)
[2021-11-20 07:41] LABS: U Amphetamine Screen DETECTED; U Barbituate Screen Not Detected; U Benzodiazapine Screen Not Detected; U Buprenorphine Screen Not Detected; U Cannabinoids Screen Not Detected; U Cocaine Screen Not Detected; U Methadone Screen Not Detected; U Methamphetamine Screen DETECTED; U Opiates Screen Not Detected; U Oxycodone Screen Not Detected; U Phencyclidine Screen Not Detected; U Propoxyphene Screen Not Detected
--- NOTE | 2021-11-20 11:10 | NUR ---
Pt. is standing up, and busy preparing to discharge. Pt. is pleasant, but is unsettled about the need for a ride to [place]. Pt. had no other spiritual needs at this time. Pt. verbalized gratitude for the spiritual care visit. Relayed the Pts. need for transportation to care management at Surg. nurses station.
--- NOTE | 2021-11-20 14:58 | NUR ---
PT REQUESTING DISCHARGE, DISCHARGE ORDERS RECEIVED. PT PROVIDED A CHANGE OF CLOTHING AND SNACKS HE STATES HE WILL BE LIVING IN HIS TRUCK UNTIL FURTHER HOUSING ARRANGED.. PT STATES HE DOES HAVE ACCESS TO ALL HIS HOME MEDS UPON DISCHARGE, PT DENIES CHEST PAIN, AMBULATING IN ROOM. PT IS IN AGREEMENT WITH DISCHARGE PLAN AND REQUESTS DISCHARGE. PT IS CALLING FRIEND TO PROVIDE RIDE TO HIS TRUCK
--- NOTE | 2021-11-20 15:55 | NUR ---
1545 PT STATES HE HAS A RIDE THAT IS PICKING HIM UP AT [facility]. PT DISCHARGED
== END 2021-11-20 15:45 | disposition other institution (70) ==
LOC: ER 14:36 → MEDS 14:37 → SURS 14:37
PROVIDERS: Family Medicine; Physician Assistant; ADMIT Internal Medicine
DX: R07.89 Other chest pain (principal); R11.2 Nausea with vomiting, unspecified; F15.10 Other stimulant abuse, uncomplicated; I25.10 Atherosclerotic heart disease of native coronary artery without angina pectoris; Z95.5 Presence of coronary angioplasty implant and graft; I12.9 Hypertensive chronic kidney disease with stage 1 through stage 4 chronic kidney disease, or unspecified chronic kidney disease; N18.9 Chronic kidney disease, unspecified; F17.210 Nicotine dependence, cigarettes, uncomplicated; Z79.82 Long term (current) use of aspirin; Z79.899 Other long term (current) drug therapy
CPT/HCPCS: 36415; 71045; 78452; 80053; 80061; 83036; 83690; 83735; 84443; 84484; 85025; 93005; 93010; 93017; 93306; 94762; 96365; 96366; 96372; 96375; 96376; 99285-25; A9270; A9500; G0378; J0360; J0706; J1650; J1885; J2785; J3480; J7040; J7120

== ENCOUNTER 2022-04-29 07:23 | Day surgery (SDC) | payer OTHER ==
[~2022-04-29] VITALS: Ht 193 cm; Wt 83.0 kg
[2022-04-29] MEDS ORDERED: TIZANIDINE HCL2 MG (07:37)
[2022-04-29] MEDS ORDERED: TRAZ50 (07:37)
[2022-04-29] MEDS ORDERED: MINO50 (07:37)
[2022-04-29] MEDS ORDERED: ABILIFY MYCITE2 M2 (07:38)
[2022-04-29] MEDS ORDERED: ASPI81CH (07:38)
== END 2022-04-29 09:31 | disposition home or self-care (01) ==
LOC: ORSCSDS 07:23
PROVIDERS: Internal Medicine Gastroenterology
PROC: 0DJD8ZZ Inspection of Lower Intestinal Tract, Via Natural or Artificial Opening Endoscopic (ICD-10-PCS; principal; 2022-04-29 08:45)
DX: Z12.11 Encounter for screening for malignant neoplasm of colon (principal); F41.9 Anxiety disorder, unspecified; F32.A Depression, unspecified; I10 Essential (primary) hypertension; Z79.01 Long term (current) use of anticoagulants; Z79.82 Long term (current) use of aspirin; Z79.899 Other long term (current) drug therapy
CPT/HCPCS: J2704; J7120

== ENCOUNTER 2022-09-24 12:09 | Day surgery (SDC) | payer OTHER ==
[~2022-09-24] VITALS: Ht 193 cm; Wt 83.6 kg
[~2022-09-24 12:09] MED LIST changes: +ABILIFY MYCITE2 M2; +ASPI81CH; +MINO50; +TIZANIDINE HCL2 MG; +TRAZ50
[2022-09-24] MEDS ORDERED: ONDA4 (12:27)
[2022-09-24] MEDS ORDERED: HYDCHL25 (12:27)
[2022-09-24 14:50] VITALS: BP 139/87
== END 2022-09-24 14:25 | disposition home or self-care (01) ==
LOC: ORSCSDS 12:09
PROVIDERS: Internal Medicine Gastroenterology
PROC: 0DBK8ZX Excision of Ascending Colon, Via Natural or Artificial Opening Endoscopic, Diagnostic (ICD-10-PCS; principal; 2022-09-24 13:15)
PROC: 0DBL8ZX Excision of Transverse Colon, Via Natural or Artificial Opening Endoscopic, Diagnostic (ICD-10-PCS; principal; 2022-09-24 13:15)
PROC: 0DBN8ZX Excision of Sigmoid Colon, Via Natural or Artificial Opening Endoscopic, Diagnostic (ICD-10-PCS; principal; 2022-09-24 13:15)
DX: Z12.11 Encounter for screening for malignant neoplasm of colon (principal); D12.2 Benign neoplasm of ascending colon; K63.5 Polyp of colon; K57.30 Diverticulosis of large intestine without perforation or abscess without bleeding; K64.4 Residual hemorrhoidal skin tags; F17.210 Nicotine dependence, cigarettes, uncomplicated; Z85.46 Personal history of malignant neoplasm of prostate; Z79.899 Other long term (current) drug therapy; I10 Essential (primary) hypertension
CPT/HCPCS: 88305; J2704; J7120

== ENCOUNTER 2023-04-14 20:52 | Inpatient (IN) | payer OTHER ==
[~2023-04-14] VITALS: Ht 190.5 cm; Wt 97.5 kg
[~2023-04-14 20:52] MED LIST changes: +Amlodipine Bes2.5 MG PO; +HYDCHL25 PO; +ONDA4
[2023-04-14 21:31] LABS: BASOPHILS ABSOLUTE AUTO 0.04 K/mm3 (0.00-0.23); BASOPHILS PERCENT AUTO 1 % (0-2); EOSINOPHILS ABSOLUTE AUTO 0.18 K/mm3 (0.00-0.68); EOSINOPHILS PERCENT AUTO 5 % (0-6); Hematocrit 45.5 % (37.0-53.0); Hemoglobin 14.1 g/dL (13.5-17.5); IMMATURE GRAN ABSOLUTE AUTO 0.01 K/mm3 (0.00-0.10); IMMATURE GRAN PERCENT AUTO 0 % (0-1); LYMPHOCYTES ABSOLUTE AUTO 1.02 K/mm3 (0.84-5.20); LYMPHOCYTES PERCENT AUTO 28 % (21-46); MONOCYTES PERCENT AUTO 14 % (4-13); Mean Corpuscular HGB 27.3 pg (26.0-34.0); Mean Corpuscular Volume 88 fL (80-100); Mean Platelet Volume 9.7 fL (9.1-12.4); NEUTROPHILS ABSOLUTE AUTO 1.96 K/mm3 (1.96-9.15); NEUTROPHILS PERCENT AUTO 53 % (41-73); Platelet Count 234 K/mm3 (150-400); RDW Coefficient Variation 13.8 % (11.7-14.2); RDW Standard Deviation 44.7 fL (35.1-46.3); Red Blood Cell Count 5.16 M/mm3 (4.30-5.90); White Blood Cell Count 3.71 K/mm3 (4.00-11.30)
[2023-04-14 21:54] LABS: U Amphetamine Screen DETECTED; U Barbituate Screen Not Detected; U Benzodiazapine Screen DETECTED; U Buprenorphine Screen Not Detected; U Cannabinoids Screen Not Detected; U Cocaine Screen Not Detected; U Methadone Screen Not Detected; U Methamphetamine Screen DETECTED; U Opiates Screen DETECTED; U Oxycodone Screen Not Detected; U Phencyclidine Screen Not Detected
[2023-04-14 21:57] LABS: Alanine Aminotransfer (ALT/SGP 42 U/L (12-78); Albumin/Globulin Ratio 1.1 (0.8-1.8); Alk Phos 78 U/L (50-136); Anion Gap 5 mmol/L (6-16); Aspartate Aminotrans (AST/SGOT 42 U/L (12-37); Bilirubin, Total 0.3 mg/dL (0.1-1.0); Blood Urea Nitrogen 16 mg/dL (8-24); Bun/Creatinine Ratio 12.9 (12.0-20.0); CO2, Blood 28 mmol/L (21-32); Calcium, Blood 9.3 mg/dL (8.5-10.1); Chloride, Blood 107 mmol/L (98-108); Creatinine, Blood 1.24 mg/dL (0.60-1.20); Ethanol (Alcohol), Blood, Med <3 mg/dL; Globulin, Blood 3.8 g/dL (2.2-4.0); Glomerular Filtration Rate 64 (60-); Glucose, Blood 67 mg/dL (70-99); Potassium, Blood 4.4 mmol/L (3.5-5.5); Sodium, Blood 140 mmol/L (136-145); Total Protein, Blood 7.8 g/dL (6.4-8.2)
[2023-04-14 22:09] LABS: PCO2 Arterial 40.6 mmHg (35-45); PO2 Arterial 194 mmHg (80-100); pH Blood Arterial 7.42 (7.35-7.45)
[2023-04-15] VITALS (47 sets, daily range): BP systolic 132–196; BP diastolic 73–121
[2023-04-15 03:49] LABS: BASOPHILS ABSOLUTE AUTO 0.03 K/mm3 (0.00-0.23); BASOPHILS PERCENT AUTO 1 % (0-2); EOSINOPHILS ABSOLUTE AUTO 0.18 K/mm3 (0.00-0.68); EOSINOPHILS PERCENT AUTO 4 % (0-6); Hematocrit 41.7 % (37.0-53.0); IMMATURE GRAN PERCENT AUTO 0 % (0-1); LYMPHOCYTES ABSOLUTE AUTO 1.06 K/mm3 (0.84-5.20); LYMPHOCYTES PERCENT AUTO 26 % (21-46); MONOCYTES ABSOLUTE AUTO 0.53 K/mm3 (0.16-1.47); MONOCYTES PERCENT AUTO 13 % (4-13); Mean Corpuscular HGB 27.7 pg (26.0-34.0); Mean Corpuscular HGB Conc 31.2 g/dL (31.5-36.5); Mean Corpuscular Volume 89 fL (80-100); Mean Platelet Volume 10.1 fL (9.1-12.4); NEUTROPHILS ABSOLUTE AUTO 2.25 K/mm3 (1.96-9.15); NEUTROPHILS PERCENT AUTO 56 % (41-73); Platelet Count 224 K/mm3 (150-400); RDW Coefficient Variation 13.7 % (11.7-14.2); RDW Standard Deviation 44.5 fL (35.1-46.3); White Blood Cell Count 4.05 K/mm3 (4.00-11.30)
[2023-04-15 04:12] LABS: Albumin, Blood 3.5 g/dL (3.4-5.0); Bilirubin, Total 0.3 mg/dL (0.1-1.0); Bun/Creatinine Ratio 13.5 (12.0-20.0); Calcium, Blood 9.1 mg/dL (8.5-10.1); Creatinine, Blood 1.11 mg/dL (0.60-1.20); Globulin, Blood 3.6 g/dL (2.2-4.0); Potassium, Blood 3.9 mmol/L (3.5-5.5); Total Protein, Blood 7.1 g/dL (6.4-8.2)
[2023-04-15 04:22] LABS: Source, Urine Foley catheter
[2023-04-15 05:24] LABS: Bilirubin, Urine Neg (Neg); Blood, Urine 2+ (Neg); Glucose Qualitative, Urine Neg (Neg); Ketones, Urine 4+ (Neg); Leukocyte Esterase, Urine 1+ (Neg); Nitrite, Urine Neg (Neg); Protein, Urine 2+ (Neg); Urobilinogen, Urine 1+ (Normal)
[2023-04-15 05:40] LABS: Appearance, Urine Clear (Clear); Color, Urine Yellow (P-Yellow)
[2023-04-15 05:41] LABS: Bacteria Few /hpf; Squamous Epithelial Cells Few /hpf (Few)
--- NOTE | 2023-04-15 06:11 | NUR ---
PATIENT ADMITTED INTO ICU. BECAME GRADUALLY MORE RESPONSIVE OVERNIGHT AND NOW ABLE TO NOD APPROPRIATELY AND FOLLOW COMMANDS. SB/SR WITH STABLE BP. INTUBATED. OGT TO LIS. BOLTON PATENT AND DRAINING TO GRAVITY. PROPOFOL AT 3O AND FENTANYL GTT DISCONTINUED.
--- NOTE | 2023-04-15 08:23 | NUR ---
Assumed care of pt at 0700 with Tee CROUCH. Bedside report received from Richard CROUCH. Pt sedated with propofol at 30 mcg/kg/min. RASS -2. SpO2 100% and ETCO2 29 with vent settings ACVC 16/450/5/30%. 8.0 cm ETT, 24 cm at teeth. SR per monitor. BP high/normal, will decrease stimulation and reassess. Pt nods head to indicate "no" when asked if he is having pain.
--- NOTE | 2023-04-15 09:56 | NUR ---
UPDATE: PT CBG 50. GAVE D5 BOLUS PER ORDERS. RECHECK 87 POST BOLUS. NEW ORDERS FROM DR. NGUYEN
--- NOTE | 2023-04-15 14:42 | NUR ---
EXTUBATION: Pt extubated at 1435. OG tube removed. Wrist restraints discontinued. O2 Sat 100% on RA. RR 14, HR NSR at 73, BP 175/96. at bedside.
[2023-04-15] MEDS ORDERED: ATOR80 PO (16:09)
[2023-04-15] MEDS ORDERED: Aspir 8181 MG PO (16:10)
[2023-04-15] MEDS ORDERED: METO25 PO (16:12)
[2023-04-15] MEDS ORDERED: ARIPIPRAZOLE PO (16:12)
[2023-04-15] MEDS ORDERED: Budeprion Xl300 MG PO (16:12)
[2023-04-15] MEDS ORDERED: LISI20 PO (16:12)
[2023-04-15] MEDS ORDERED: Docusate Sodiu250 MG PO (16:13)
[2023-04-15] MEDS ORDERED: ACET500 PO (16:13)
[2023-04-15] MEDS ORDERED: THERA-D2000 UNIT PO (16:13)
[2023-04-15] MEDS ORDERED: PRAZ1 PO (16:14)
[2023-04-15] MEDS ORDERED: OMEP20ER PO (16:14)
[2023-04-15] MEDS ORDERED: B-1100 M1 PO (16:15)
[2023-04-15] MEDS ORDERED: TRAZ50 PO (16:15)
[2023-04-15] MEDS ORDERED: Chantix1 MG PO (16:15)
--- NOTE | 2023-04-15 18:19 | NUR ---
Shift Summary: Pt resting in bed on RA with saturation 98-100%. Dozing on and off, occasional snore. Pt oriented to place, self, family and time. Pt has asked multiple times "what happened" and "why am I here". Pt reoriented multiple times on why he is a patient in ICU at [facility]. Follows directions well and re-orients well. is at bedside. Pt was extubated this afternoon around 1430 (see previous note). Has maintained good Resp Rate and oxygenation since that time. Pt does have a good gag and is able to cough when asked. Attempted bedside swallow at around 1700 but did not pass (see Albert swallow assessment). Will have maintenance supervisor 2nd shift reassess as needed. Pt has been NSR throughout the shift. Has remained hypertensive with systolic BP in the 150-180's. New orders were given throughout the shift to manage BP. Will continue to treat per orders. OG tube was removed at time of extubation. Walker cath was removed around 1700, no void yet. Urinal at bedside. Pt made good improvement throughout the shift. Will report to night RN.
--- NOTE | 2023-04-15 21:35 | NUR ---
ASSUMED CARE AT 1900 PT IS LAYING IN BED SLEEPING AT SHIFT CHANGE. HE IS A/O X3, UNSURE OF SITUATION; HE IS SLOW TO RESPOND BUT ABLE TO HOLD A CONVERSATION WHEN STIMULATED; WHEN LEFT ALONE HE SLEEPS. AFEBRILE. SPO2 >98% ON RA; PRODUCTIVE COUGH NOTED. HR 80'S. SBP 160-160'S; PRN AVAILABE FOR SBP >160. PERFORMED ZEINAB SWALLOW EVALUATION AND HE PASSED; HE IS TOLERATING PO INTAKE NOW. HE IS ABLE TO SIT AT THE EDGE OF THE BED AND USE URINAL WITH MINIMAL ASSISTANCE; ASSISTANCE NEEDED FOR LINE MANAGEMENT. CBG WAS 108; D10 INFUSING AT 75ML/HR. SEE SHIFT ASSESSMENT FOR FULL ASSESSMENT.
[2023-04-16] VITALS (12 sets, daily range): BP systolic 129–163; BP diastolic 75–99
[2023-04-16 03:49] LABS: Bun/Creatinine Ratio 6.1 (12.0-20.0); Calcium, Blood 9.2 mg/dL (8.5-10.1); Creatinine, Blood 1.14 mg/dL (0.60-1.20); Potassium, Blood 3.7 mmol/L (3.5-5.5)
--- NOTE | 2023-04-16 05:00 | NUR ---
UPDATE PT (CHRISTIAN) CALLED FOR AN UPDATE EARLIER IN THE NIGHT. SHE WAS CONCERNED ABOUT THE CONVERSATION THE PATIENT JUST HAD WITH HER. SHE STATED THAT ON THE PHONE, RACHELLE WAS ASKING FOR HIS KEYS AND BELONGINGS SO HE COULD LEAVE. CHRISTIAN STATED THAT BEFORE ADMISSION, RACHELLE WANTED TO GO TO REHAB TO "DETOX". THIS LAST CONVERSATION THOUGH, HE DID NOT WANT TO GO TO REHAB AND STATED THAT HE WAS GOING TO GET OUT AND "HURT HIMSELF". SHE WAS VERY CONCERNED ABOUT HIM LEAVING IN THE MIDDLE OF THE NIGHT OR EVEN POSSIBLY DURING THE DAY. DURING THIS MOSAIC TILE MAKER, PT ASKED WHEN HE COULD LEAVE BUT NEVER ASKED IF HE COULD LEAVE RIGHT NOW OR SOON. AFTER THE CONVERSATION WITH CHRISTIAN, THIS RN ASKED RACHELLE IF HE HAD PLANS OF HURTING HIMSELF, HE SAID NO. HE CONT TO BE POLITE AND COOPERATIVE WITH CARE. HE DID NOT BRING UP LEAVING OR HURTING HIMSELF THE REST OF THE SHIFT.
--- NOTE | 2023-04-16 06:00 | NUR ---
END OF SHIFT SUMMARY NO ACUTE EVENTS OVERNIGHT. PT WAS ABLE TO SLEEP FOR SHORT PERIODS OF TIME. HE C/O GENERALIZED PAIN, PRN TYLENOL GIVEN WITH NO RELIEF, PRN FENTANYL GIVEN WITH SOME IMPROVEMENTS. HE IS A/O X4 AND ABLE TO MAKE HIS NEEDS KNOWN. AFEBRILE. SPO2 >98% ON RA; PRODUCTIVE COUGH NOTED. HR 70'S. SBP 140-150'S. TOLERATING PO DIET WELL, HE WAS ABLE TO TOLERATE PUDDING, FAHAD CRACKERS, AND EVENTUALLY HALF A SANDWICH WITHOUT COUGHING. ABLE TO USE URINAL WITH MINIMAL ASSIST. HE CAN STAND AT THE EDGE OF THE BED WITH MINIMAL ASSISTANCE FOR LINE MANAGEMENT. D10 INFUSING AT 75ML/HR, HIGHEST GLUCOSE THIS SHIFT WAS 126 AND THIS WAS AFTER PT SNACKED. WILL REPORT TO AM RN WHEN AVAILABLE.
--- NOTE | 2023-04-16 07:19 | NUR ---
Pt's , Tejal, in to see patient. Discussed with Tejal that patient has denied wanting to hurt himself. Asked Tejal exactly what the patient told her. He states "I don't remember exactly". She then asks if he has tried to leave. Discussed that patient has not tried to leave against medical advice.
--- NOTE | 2023-04-16 08:33 | NUR ---
Assumed care of pt at 0700. Report received from China CROUCH. Pt A&O x 4. Answers questions, follows commands, verbalizes needs. Pleasant and cooperative with care. Speech is difficult to understand as upper dentures are absent. Pt's spouse plans to retrieve them from home. Tolerating diet well without coughing/choking or signs of aspiration.
--- NOTE | 2023-04-16 10:49 | NUR ---
Pt. is awake in bed and welcomes my visit. Spouse Tejal is present. This Pt. is known to this cake knocker from the community. Facilitate a life review and consider recent events in his health/life history. Pt. displays evidence of somnolence, so this cake knocker kept the visit short. Prayed with the Pt. and Spouse. Pt. fell asleep during prayer, and spouse verbalized gratitude for the spiritual care visit. Will remain available to the family.
--- NOTE | 2023-04-16 11:22 | NUR ---
Dr Lara has been in to see patient today and discuss plan of care with both patient and his spouse. Discussed hypoglycemia and provider stated to stop D10 drip and reassess. So far, pt is tolerating discontinuation of the drip without and signs/symptoms or measurements of hypoglycemia. Dr Dempsey in to see pt with resident Dr Corado. Per all providers for this patient's care, pt is appropriate for medical floor status without telemetry. Pt's alcohol use discussed with Dr Lara and recharger Ramon. Pt reports drinking "a pint and a half" of alcohol per day. Last drink prior to admission. So far, pt has had zero signs of alcohol withdrawal. No CIWA medications ordered; plan to call Dr Lara with update on patient care if patient does begin to show signs of alcohol withdrawal. manager business continuity, Sosa, in to see patient and discuss post hospitalization care with patient and his spouse. ADAPT staff member in to see patient and spouse as well.
--- NOTE | 2023-04-16 14:22 | NUR ---
Care handoff to Marion CROUCH.
--- NOTE | 2023-04-16 19:58 | NUR ---
PATIENT ARRIVED TO UNIT AROUND 1500. HE DENIES ANY COMPLAINTS THROUGHOUT SHIFT. CIWAA SCORE THIS EVENING 2, DUE TO SLIGHT CHILLS AND MILD ANXIETY. BED IN LOW POSITION. BED ALARM ON, PATIENT AOX4 AND CALLS APPROPRIATELY. HE IS COOPERATIVE WITH CARE.
[2023-04-17] MEDS ORDERED: METHYL TOP (02:02)
[2023-04-17] MEDS ORDERED: MENTH TOP (02:02)
[2023-04-17] MEDS ORDERED: CAMPHOR TOP (02:02)
[2023-04-17] MEDS ORDERED: Hair, Skin & N1 EACH PO (02:03)
[2023-04-17] MEDS ORDERED: NARCAN4 M1 (02:07)
[2023-04-17 03:50] VITALS: BP 149/84
[2023-04-17 05:03] LABS: BASOPHILS ABSOLUTE AUTO 0.04 K/mm3 (0.00-0.23); BASOPHILS PERCENT AUTO 1 % (0-2); EOSINOPHILS ABSOLUTE AUTO 0.23 K/mm3 (0.00-0.68); EOSINOPHILS PERCENT AUTO 7 % (0-6); Hematocrit 40.1 % (37.0-53.0); Hemoglobin 12.8 g/dL (13.5-17.5); IMMATURE GRAN ABSOLUTE AUTO 0.01 K/mm3 (0.00-0.10); IMMATURE GRAN PERCENT AUTO 0 % (0-1); LYMPHOCYTES ABSOLUTE AUTO 1.23 K/mm3 (0.84-5.20); LYMPHOCYTES PERCENT AUTO 37 % (21-46); MONOCYTES ABSOLUTE AUTO 0.45 K/mm3 (0.16-1.47); MONOCYTES PERCENT AUTO 13 % (4-13); Mean Corpuscular HGB 27.7 pg (26.0-34.0); Mean Corpuscular HGB Conc 31.9 g/dL (31.5-36.5); Mean Corpuscular Volume 87 fL (80-100); Mean Platelet Volume 9.6 fL (9.1-12.4); NEUTROPHILS PERCENT AUTO 42 % (41-73); Platelet Count 233 K/mm3 (150-400); RDW Coefficient Variation 13.9 % (11.7-14.2); RDW Standard Deviation 44.6 fL (35.1-46.3); Red Blood Cell Count 4.62 M/mm3 (4.30-5.90); White Blood Cell Count 3.36 K/mm3 (4.00-11.30)
[2023-04-17 05:51] LABS: Anion Gap 5 mmol/L (6-16); Blood Urea Nitrogen 14 mg/dL (8-24); Bun/Creatinine Ratio 10.4 (12.0-20.0); CO2, Blood 28 mmol/L (21-32); Calcium, Blood 8.8 mg/dL (8.5-10.1); Chloride, Blood 112 mmol/L (98-108); Creatinine, Blood 1.34 mg/dL (0.60-1.20); Glomerular Filtration Rate 58 (60-); Glucose, Blood 103 mg/dL (70-99); Phosphorus, Blood 3.7 mg/dL (2.5-4.9); Potassium, Blood 3.8 mmol/L (3.5-5.5); Sodium, Blood 145 mmol/L (136-145)
[2023-04-17 07:15] VITALS: BP 148/81
--- NOTE | 2023-04-17 07:33 | NUR ---
END OF SHIFT SUMMARY UNEVENTFUL NIGHT, PT SLEPT WELL. BED ALARM WAS TURNED ON FOR PT'S SAFETY, HOWEVER, PT'S GAIT APPEARED TO BE STEADY. PAIN MANAGED WITH SCHEDULED APAP AND PRN TORADOL. PAIN LOCATED TO BILAT HIPS AND JOINTS. PT A&O x4, VSS, AFEBRILE. NO ORDERS FOR CIWA. PT ABLE TO MAKE NEEDS KNOWN. BLOOD SUGAR CHECKS OVERNIGHT HAVE BEEN STABLE, THE LAST CBG AT 0610 WAS 103. CALL LIGHT WITHIN REACH, WCTM.
[2023-04-17] MEDS ORDERED: DOCUZEN 8.6-501 EACH PO (10:24)
[2023-04-17] MEDS ORDERED: MIRALAX17 GM PO (10:24)
--- NOTE | 2023-04-17 11:46 | NUR ---
DISCHARGE NOTE MR MATHEW WAS DISCHARGED HOME AT 1110HRS. HE AMBULATED FROM THE MEDICAL UNIT INDEPENDENTLY AND STEADY GAIT. NO EVIDENCE OF CONFUSION THIS SHIFT. VISITED THIS AM. HE VERBALISED UNDERSTANDING OF WRITTEN AND VERBAL DISCHARGE INSTRUCTIONS. DENIES QUESTIONS OR CONCERNS AT TIME OF DISCHARGE. PIVS REMOVED PRIOR TO DISCHARGE.
== END 2023-04-17 11:13 | disposition home or self-care (01) | DRG 917 ==
LOC: ER 20:52 → ICUE 20:53 → MEDS 04-15 12:27 → ICUE 04-15 12:28 → MEDS 04-16 16:26 → ENPENDDIS 04-17 11:00 → MEDS 04-17 11:13
PROVIDERS: Emergency Medicine; Family Medicine; Internal Medicine Critical Care Medicine; ADMIT Internal Medicine
PROC: 5A1945Z Respiratory Ventilation, 24-96 Consecutive Hours (ICD-10-PCS; principal; 2023-04-14)
PROC: 4A133R1 Monitoring of Arterial Saturation, Peripheral, Percutaneous Approach (ICD-10-PCS; 2023-04-14)
PROC: 0BH17EZ Insertion of Endotracheal Airway into Trachea, Via Natural or Artificial Opening (ICD-10-PCS; 2023-04-14)
PROC: HZ2ZZZZ Detoxification Services for Substance Abuse Treatment (ICD-10-PCS; 2023-04-15)
DX: T42.4X1A Poisoning by benzodiazepines, accidental (unintentional), initial encounter (principal); G92.8 Other toxic encephalopathy; J96.90 Respiratory failure, unspecified, unspecified whether with hypoxia or hypercapnia; I67.89 Other cerebrovascular disease; T43.651A Poisoning by methamphetamines accidental (unintentional), initial encounter; F10.20 Alcohol dependence, uncomplicated; F15.10 Other stimulant abuse, uncomplicated; I25.10 Atherosclerotic heart disease of native coronary artery without angina pectoris; N18.2 Chronic kidney disease, stage 2 (mild); I12.9 Hypertensive chronic kidney disease with stage 1 through stage 4 chronic kidney disease, or unspecified chronic kidney disease; E16.2 Hypoglycemia, unspecified; Y90.0 Blood alcohol level of less than 20 mg/100 ml; F17.210 Nicotine dependence, cigarettes, uncomplicated; Z95.5 Presence of coronary angioplasty implant and graft; I25.2 Old myocardial infarction; Z98.1 Arthrodesis status; Z85.46 Personal history of malignant neoplasm of prostate; Z90.79 Acquired absence of other genital organ(s); Z79.82 Long term (current) use of aspirin; Z86.19 Personal history of other infectious and parasitic diseases; Z96.641 Presence of right artificial hip joint; Z78.1 Physical restraint status
CPT/HCPCS: 31500; 36415; 36600; 51702; 70450; 71045; 80048; 80053; 80069; 81001; 82803; 82947; 83880; 84484; 85025; 93005; 93010; 94002; 96361; 96365; 96366; 96367; 96368; 96372; 96374-59; 96375; 96375-59; 96376-59; 99291-25; A9270; C9113; G0378; J0330; J0360; J1650; J1885; J2250; J2704; J3010; J3411; J7030; J7060

== ENCOUNTER 2023-05-07 10:47 | Emergency (ER) | payer OTHER ==
[~2023-05-07] VITALS: Ht 193 cm; Wt 86.2 kg
[~2023-05-07 10:47] MED LIST changes: +ACET500 PO; +ARIPIPRAZOLE PO; +ATOR80 PO; +Aspir 8181 MG PO; +B-1100 M1 PO; +Budeprion Xl300 MG PO; +CAMPHOR TOP; +Chantix1 MG PO; +DOCUZEN 8.6-501 EACH PO; +Docusate Sodiu250 MG PO; +Hair, Skin & N1 EACH PO; +MENTH TOP; +METHYL TOP; +MIRALAX17 GM PO; +NARCAN4 M1; +OMEP20ER PO; +PRAZ1 PO; +THERA-D2000 UNIT PO
[2023-05-07 10:57] VITALS: BP 151/85
== END 2023-05-07 11:07 | disposition home or self-care (01) ==
LOC: ER 10:47
DX: M25.552 Pain in left hip (principal); I25.10 Atherosclerotic heart disease of native coronary artery without angina pectoris; I10 Essential (primary) hypertension; I25.2 Old myocardial infarction; F17.290 Nicotine dependence, other tobacco product, uncomplicated; Z79.82 Long term (current) use of aspirin; Z79.899 Other long term (current) drug therapy
CPT/HCPCS: 99283

== ENCOUNTER 2024-07-10 10:22 | Day surgery (SDC) | payer OTHER ==
[~2024-07-10] VITALS: Ht 193 cm; Wt 102.0 kg
[2024-07-10] VITALS (14 sets, daily range): BP systolic 126–171; BP diastolic 83–141
[2024-07-10] MEDS ORDERED: MELATONIN5 M1 PO (11:26)
[2024-07-10] MEDS ORDERED: DOXY100 PO (11:27)
[2024-07-10] MEDS ORDERED: PRED5 PO (11:27)
[2024-07-10] MEDS ORDERED: ZYTIGA250 MG PO (11:28)
[2024-07-10] MEDS ORDERED: Acerola C500 MG PO (11:29)
[2024-07-10] MEDS ORDERED: OxyCODONE HCL 10 MG TABCR PO SCH (11:30)
[2024-07-10] MEDS ORDERED: Tranexamic Acid 1,000 MG in NS 100 ML IV SCH (11:30)
[2024-07-10] MEDS ORDERED: Ropivacaine 0.5% HCl/Pf 123.125 MG,EPINEPHrine HCL 0.25 MG,Ketorolac Tromethamine 15 MG... INFIL SCH (11:30)
[2024-07-10] MEDS ORDERED: DOC250 PO (11:30)
[2024-07-10] MEDS ORDERED: CeFAZolin Sodium 2,000 MG in NS 100 ML IV SCH ×2 (11:30→21:00)
[2024-07-10] MEDS ORDERED: Lactated Ringer's 1,000 ML IV SCH ×2 (11:30→13:50)
[2024-07-10] MEDS ORDERED: Chlorhexidine Mouth Care 15 ML UDC MT SCH (11:30)
[2024-07-10] MEDS ORDERED: CeFAZolin Sodium 2,000 MG VIAL ONE (11:36)
[2024-07-10] MEDS ORDERED: Acetaminophen 500 MG Tab PO SCH ×2 (12:05→16:00)
[2024-07-10] MEDS ORDERED: Midazolam HCl 1MG / ML 2ML Vial ONE (12:55)
[2024-07-10] MEDS ORDERED: propofoL 100 ML IV ONE (12:58)
[2024-07-10] MEDS ORDERED: Hydrocortisone Sod Succinate 100 MG Vial ONE (13:20)
[2024-07-10] MEDS ORDERED: Metoclopramide HCl 5MG / ML 2ML Vial IV PRN (13:55)
[2024-07-10] MEDS ORDERED: HYDROmorphone HCl/Pf 1MG SYR IV PRN (13:55)
[2024-07-10] MEDS ORDERED: FLU VACC TS2024-25(6MOS UP)/PF 45 MCG/0.5 ML SYRINGE IM PRN (13:55)
[2024-07-10] MEDS ORDERED: DiphenhydrAMINE HCL 25 MG Cap PO PRN (14:40)
[2024-07-10] MEDS ORDERED: Magnesium Hydroxide Conc 10 ML UDC PO PRN (14:40)
[2024-07-10] MEDS ORDERED: Bisacodyl 10 MG Supp PR PRN (14:40)
[2024-07-10] MEDS ORDERED: Ondansetron HCl 2 MG / ML 2ML Vial IV PRN (14:40)
[2024-07-10] MEDS ORDERED: propofoL 50 ML IV ONE (14:41)
[2024-07-10] MEDS ORDERED: OxyCODONE HCL 5 MG TAB PO PRN ×2 (14:45)
[2024-07-10] MEDS ORDERED: Prochlorperazine Edisylate 10 mg Vial IV PRN (14:45)
[2024-07-10] MEDS ORDERED: Promethazine HCl 25 MG Tab PO PRN (14:45)
[2024-07-10] MEDS ORDERED: PredniSONE 5 MG Tab PO SCH (17:00)
[2024-07-10] MEDS ORDERED: ABIRATERONE 250 MG PO SCH (17:00)
[2024-07-10] MEDS ORDERED: Ketorolac Tromethamine 15mg Vial IV SCH (18:00)
[2024-07-10] MEDS ORDERED: Melatonin 5 MG Tablet PO SCH (21:00)
[2024-07-10] MEDS ORDERED: Prazosin HCl 1 MG Cap PO SCH (21:00)
[2024-07-10] MEDS ORDERED: Atorvastatin 40 MG Tab PO SCH (21:00)
[2024-07-10] MEDS ORDERED: Docusate Sodium 100 MG Cap PO SCH (21:00)
[2024-07-10] MEDS ORDERED: Doxycycline Hyclate 100 MG TAB PO SCH (21:00)
[2024-07-11 05:09] LABS: BASOPHILS ABSOLUTE AUTO 0.01 K/mm3 (0.00-0.23); BASOPHILS PERCENT AUTO 0 % (0-2); EOSINOPHILS ABSOLUTE AUTO 0.01 K/mm3 (0.00-0.68); EOSINOPHILS PERCENT AUTO 0 % (0-6); Hematocrit 34.5 % (37.0-53.0); Hemoglobin 10.8 g/dL (13.5-17.5); IMMATURE GRAN ABSOLUTE AUTO 0.01 K/mm3 (0.00-0.10); IMMATURE GRAN PERCENT AUTO 0 % (0-1); LYMPHOCYTES ABSOLUTE AUTO 0.35 K/mm3 (0.84-5.20); LYMPHOCYTES PERCENT AUTO 6 % (21-46); MONOCYTES ABSOLUTE AUTO 0.77 K/mm3 (0.16-1.47); MONOCYTES PERCENT AUTO 14 % (4-13); Mean Corpuscular HGB 26.9 pg (26.0-34.0); Mean Corpuscular HGB Conc 31.3 g/dL (31.5-36.5); Mean Corpuscular Volume 86 fL (80-100); Mean Platelet Volume 9.6 fL (9.1-12.4); NEUTROPHILS ABSOLUTE AUTO 4.38 K/mm3 (1.96-9.15); NEUTROPHILS PERCENT AUTO 79 % (41-73); Platelet Count 177 K/mm3 (150-400); RDW Coefficient Variation 14.1 % (11.7-14.2); RDW Standard Deviation 44.1 fL (35.1-46.3); Red Blood Cell Count 4.01 M/mm3 (4.30-5.90); White Blood Cell Count 5.53 K/mm3 (4.00-11.30)
[2024-07-11 05:15] VITALS: BP 153/89
[2024-07-11 05:48] LABS: Bun/Creatinine Ratio 14.4 (12.0-20.0); Calcium, Blood 9.1 mg/dL (8.5-10.1); Creatinine, Blood 0.97 mg/dL (0.60-1.20)
--- NOTE | 2024-07-11 06:32 | NUR ---
SHIFT SUMMARY POD 1 L ROBERTO. NO ACUTE CHANGES OVERNIGHT. VSS. TOLERATING ORALS, DENIES N/V. VOIDING. AMBULATES USING FWW c GB & SBA. PRINEO C/D/I. PT REPORTS PAIN TOLERABLE, MEDICATED PER EMAR, POLAR PACK IN USE. ANTICIPATED DISCHARGE AFTER WORKING c PHYSCIAL THERAPY TODAY. PT DRESSED & RESTING IN CHAIR c LEs ELEVATED. CALL LIGHT IN REACH, WILL REPORT TO DAY RN.
[2024-07-11 07:35] VITALS: BP 175/89
[2024-07-11] MEDS ORDERED: Aspirin 81 MG Chew PO SCH (09:00)
[2024-07-11] MEDS ORDERED: Lisinopril 20 MG Tab PO SCH (09:00)
[2024-07-11] MEDS ORDERED: Docusate Sodium 250 MG Cap PO SCH (09:00)
[2024-07-11] MEDS ORDERED: OXYC5 PO (09:12)
[2024-07-11] MEDS ORDERED: ACET500 PO (09:12)
--- NOTE | 2024-07-11 11:46 | NUR ---
Pt. is awake in a recliner and dressed awaiting discharge when he welcomed my visit. Pt. is pleasant and known to the s thread weaver form the community. Facilitate a lfie review and listen with empathy and interest. Consider matters of jaden and yazdanism. Pt. displays evidence of being aware, engaged, and motivated. Prayed with the Pt. Pt. verbalized gratitude for the spiritual care visit.
--- NOTE | 2024-07-11 12:40 | NUR ---
DISCHARGE PT WORKED w/ THERAPY. BUT DID NOT HAVE WALKER AT HOME SO ARRANGEMENTS MADE & GOT FWW. PAIN WELL CONTROLLED. EATING, DRINKING, & VOIDING WELL. RADHA & POLAR PACK SENT w/ PT. ESCORTED OUT VIA W/C.
== END 2024-07-11 12:40 | disposition home or self-care (01) ==
LOC: ORSCMMR 10:22 → ORD 11:30 → ORSCMMR 11:30 → SURS 15:46 → ORSCMMR 07-11 12:40 → ORD 07-24 07:30
PROVIDERS: Orthopaedic Surgery
PROC: 0SRD0JA Replacement of Left Knee Joint with Synthetic Substitute, Uncemented, Open Approach (ICD-10-PCS; principal; 2024-07-10 11:30)
DX: M16.12 Unilateral primary osteoarthritis, left hip (principal); I10 Essential (primary) hypertension; Z87.891 Personal history of nicotine dependence; Z86.73 Personal history of transient ischemic attack (TIA), and cerebral infarction without residual deficits; Z79.899 Other long term (current) drug therapy; Z79.82 Long term (current) use of aspirin; Z96.641 Presence of right artificial hip joint
CPT/HCPCS: 36415; 72170; 80048; 83735; 85025; 97110; 97116; 97162; A9270; C1713; C1776; J0171; J0690; J0735; J1720; J1885; J2250; J2704; J2795; J7120; J7512

== ENCOUNTER → 2024-09-18 | Outpatient (CLI) | payer OTHER ==
[~2024-09-18] MED LIST changes: +Acerola C500 MG PO; +DOC250 PO; +DOXY100 PO; +MELATONIN5 M1 PO; +OXYC5 PO; +PRED5 PO; +ZYTIGA250 MG PO
== END ==
LOC: LAB 16:15 → LAB SHORT 16:15
DX: R07.9 Chest pain, unspecified (principal)
CPT/HCPCS: 84484

== ENCOUNTER → 2024-11-01 | Outpatient (CLI) | payer OTHER ==
[2024-11-01 14:37] LABS: BASOPHILS ABSOLUTE AUTO 0.04 K/mm3 (0.00-0.23); BASOPHILS PERCENT AUTO 2 % (0-2); EOSINOPHILS ABSOLUTE AUTO 0.04 K/mm3 (0.00-0.68); EOSINOPHILS PERCENT AUTO 2 % (0-6); Hematocrit 38.5 % (37.0-53.0); Hemoglobin 11.8 g/dL (13.5-17.5); IMMATURE GRAN ABSOLUTE AUTO 0.01 K/mm3 (0.00-0.10); IMMATURE GRAN PERCENT AUTO 0 % (0-1); LYMPHOCYTES ABSOLUTE AUTO 0.34 K/mm3 (0.84-5.20); LYMPHOCYTES PERCENT AUTO 15 % (21-46); MONOCYTES ABSOLUTE AUTO 0.13 K/mm3 (0.16-1.47); MONOCYTES PERCENT AUTO 6 % (4-13); Mean Corpuscular HGB 25.7 pg (26.0-34.0); Mean Corpuscular HGB Conc 30.6 g/dL (31.5-36.5); Mean Corpuscular Volume 84 fL (80-100); Mean Platelet Volume 10.4 fL (9.1-12.4); NEUTROPHILS ABSOLUTE AUTO 1.78 K/mm3 (1.96-9.15); NEUTROPHILS PERCENT AUTO 76 % (41-73); Platelet Count 227 K/mm3 (150-400); RDW Coefficient Variation 14.5 % (11.7-14.2); RDW Standard Deviation 43.8 fL (35.1-46.3); Red Blood Cell Count 4.59 M/mm3 (4.30-5.90); White Blood Cell Count 2.34 K/mm3 (4.00-11.30)
[2024-11-01 14:52] LABS: Albumin, Blood 3.8 g/dL (3.4-5.0); Bilirubin, Total 0.5 mg/dL (0.1-1.0); Bun/Creatinine Ratio 7.3 (12.0-20.0); Calcium, Blood 9.5 mg/dL (8.5-10.1); Creatinine, Blood 1.09 mg/dL (0.60-1.20); Globulin, Blood 3.7 g/dL (2.2-4.0); Potassium, Blood 3.9 mmol/L (3.5-5.5); Thyroid Stimulating Hormone 0.632 uIU/mL (0.360-4.800); Total Protein, Blood 7.5 g/dL (6.4-8.2)
== END ==
LOC: LAB 14:26 → LAB SHORT 14:26
PROVIDERS: Chiropractor
DX: R07.9 Chest pain, unspecified (principal); R53.83 Other fatigue
CPT/HCPCS: 80053; 83690; 84443; 84484; 85025